=== PATIENT | female | born 1990 | race Caucasian/White ===

== ENCOUNTER 2019-07-03 00:48 | Emergency (ER) | payer OTHER ==
[~2019-07-03] VITALS: Ht 177.8 cm; Wt 120.2 kg
[2019-07-03 00:53] VITALS: BP 133/81
--- NOTE | 2019-07-03 00:53 | NUR ---
Pt ambulated to bed 9.
--- NOTE | 2019-07-03 01:13 | NUR ---
28 y/o female arrived to ed c/o left pelvic pain x 2months. rates pain 9/10 and describes it as sharp. pt states pain got worse over time. vss. abd is round,flat, active bs, and tenderness to touch on llq. on palpation the sensation feels like a movable ball. no distress noted. denies any trauma or injry or falls. no n,v. nka. pmh: gallbladder removal, appendix removal.
[2019-07-03] MEDS ORDERED: KETOROLAC 30 MG/ML VIAL IM ONE (02:00)
--- NOTE | 2019-07-03 03:12 | NUR ---
US TECH AT BEDSIDE.
[2019-07-03 04:59] VITALS: BP 122/59
== END 2019-07-03 04:59 | disposition home or self-care (01) ==
LOC: MED 00:48
DX: R10.9 Unspecified abdominal pain (principal); Z90.49 Acquired absence of other specified parts of digestive tract
CPT/HCPCS: 76856; 81002; 81025; 93976; 96372; 99284; J1885; Q0092

== ENCOUNTER 2019-07-30 20:45 | Emergency (ER) | payer OTHER ==
[~2019-07-30] VITALS: Ht 180.3 cm; Wt 117.9 kg
[2019-07-30 21:32] VITALS: BP 132/81
--- NOTE | 2019-07-30 21:35 | NUR ---
to lobby a/w bed ambulatory
--- NOTE | 2019-07-30 21:49 | NUR ---
PT AMBULATED TO CHAIR
--- NOTE | 2019-07-30 21:49 | NUR ---
28 y/o female c/o burning, redness, edema to right lower abdomen near belt-line x3 days. Area open and draining clear fluid. Also states itching. Afebrile with vss. ER MD aware. Pt in chair. Continue to monitor.
[2019-07-30 22:02] VITALS: BP 128/76
--- NOTE | 2019-07-30 22:02 | NUR ---
Patient discharged with v/s stable. States relief and reduced pain of 2/10. Written and verbal after care instructions given and explained. Patient alert, oriented and verbalized understanding of instructions. Ambulatory with steady gait. All questions addressed prior to discharge. ID band removed. Patient advised to follow up with PMD and when to return to ER. Rx of Ibuprofen and Keflex given. Patient educated on indication of medication including possible reaction and side effects. Opportunity to ask questions provided and answered.
== END 2019-07-30 22:02 | disposition home or self-care (01) ==
LOC: MED 20:45
DX: L03.311 Cellulitis of abdominal wall (principal)
CPT/HCPCS: 99283

== ENCOUNTER 2019-11-20 09:19 | Emergency (ER) | payer OTHER ==
[~2019-11-20] VITALS: Ht 177.8 cm; Wt 114.0 kg
[2019-11-20 09:33] VITALS: BP 123/85
--- NOTE | 2019-11-20 09:36 | NUR ---
Patient ambulated to bed 2. RN evaluating patient at bedside.
--- NOTE | 2019-11-20 09:49 | NUR ---
STREP THROAT SWABS COLLECTED---LAB NOTIFIED
[2019-11-20] MEDS ORDERED: IBUPROFEN 400 MG TAB PO ONE (09:50)
[2019-11-20 11:07] VITALS: BP 123/85
--- NOTE | 2019-11-20 11:08 | NUR ---
Patient discharged with v/s stable. Written and verbal after care instructions given and explained. Patient alert, oriented and verbalized understanding of instructions. Ambulatory with steady gait. All questions addressed prior to discharge. ID band removed. Patient advised to follow up with PMD. Rx of NAPROSYN/ PENICILLIN VK given. Patient educated on indication of medication including possible reaction and side effects. Opportunity to ask questions provided and answered.
== END 2019-11-20 11:08 | disposition home or self-care (01) ==
LOC: MED 09:19
DX: J03.00 Acute streptococcal tonsillitis, unspecified (principal)
CPT/HCPCS: 87081; 99283

== ENCOUNTER 2020-01-08 20:43 | Emergency (ER) | payer OTHER, SELFPAY ==
[~2020-01-08] VITALS: Ht 177.8 cm; Wt 108.9 kg
--- NOTE | 2020-01-08 21:04 | NUR ---
PT TAKEN TO OF TENT
--- NOTE | 2020-01-08 22:13 | NUR ---
COVID SWAB COLLECTED AND SENT TO LAB.
--- NOTE | 2020-01-08 22:32 | NUR ---
Patient discharged with v/s stable. Written and verbal after care instructions given and explained. Patient verbalized understanding. Ambulatory with steady gait. All questions addressed prior to discharge. Advised to follow up with PMD.
== END 2020-01-08 22:32 | disposition home or self-care (01) ==
LOC: MED 20:43
DX: R50.9 Fever, unspecified (principal); Z20.828 Contact with and (suspected) exposure to other viral communicable diseases; R68.83 Chills (without fever); M79.10 Myalgia, unspecified site; R05 Cough
CPT/HCPCS: 99283; U0003

== ENCOUNTER 2020-07-20 15:41 | Emergency (ER) | payer OTHER, SELFPAY ==
[~2020-07-20] VITALS: Ht 180.3 cm; Wt 120.2 kg
[2020-07-20 15:52] VITALS: BP 146/85
--- NOTE | 2020-07-20 16:35 | NUR ---
29 Y/O FEMALE C/O ABDOMINAL PAIN X1DAY 04/26 INTERMITTENT THROBBING WORSE WITH DEEP BREATHING. PT STATES SHE TOOK TYNENOL WITH NO RELIEF. +N/V, CHILLS. PT VOMITED X2 TODAY. DENIES PMH
--- NOTE | 2020-07-20 16:39 | NUR ---
Patient ambulated to restroom for collection of urine
[2020-07-20 16:53] LABS: BASOPHILS % (AUTO) 0.3 % (0.0-2.0); EOSINOPHILS # (AUTO) 0.2 K/uL (0-0.4); HEMATOCRIT 42.8 % (36-48); HEMOGLOBIN 14.5 g/dL (12.0-16.0); LYMPHOCYTES # (AUTO) 1.7 K/uL (2.5-16.5); LYMPHOCYTES % (AUTO) 11.2 % (20.5-51.1); MEAN CORPUSCULAR HEMOGLOBIN 31 pg (27-31); MEAN CORPUSCULAR HGB CONC 34 g/dL (33-37); MEAN CORPUSCULAR VOLUME 90.3 fL (80-94); MONOCYTES # (AUTO) 0.8 K/uL (0.8-1.0); MONOCYTES % (AUTO) 5.4 % (1.7-9.3); NEUTROPHILS # (AUTO) 12.7 K/uL (1.8-7.7); NEUTROPHILS % (AUTO) 82.1 % (42.2-75.2); PLATELET COUNT (AUTO) 341 K/uL (140-450); RED BLOOD CELL COUNT(AUTO) 4.74 MIL/uL (4.20-5.40); RED CELL DISTRIBUTION WIDTH 14.1 % (11.6-13.7); WHITE BLOOD COUNT (AUTO) 15.5 K/uL (4.8-10.8)
[2020-07-20 17:15] LABS: ALBUMIN 3.6 g/dL (3.4-5.0); ANION GAP 11.1 (8-16); CARBON DIOXIDE 28.2 mmol/L (21-32); CREATININE 0.7 mg/dL (0.6-1.3); POTASSIUM 3.3 mmol/L (3.5-5.1); TOTAL BILIRUBIN 0.5 mg/dL (0.0-1.0)
[2020-07-20] MEDS ORDERED: cefTRIAXone 1,000 MG in LIDOCAINE MPF 1% 2.1 ML IM ONE (17:20)
[2020-07-20] MEDS ORDERED: LIDOCAINE MPF 1% 5 ML ONE (17:28)
[2020-07-20] MEDS ORDERED: cefTRIAXone 1,000 MG VIAL ONE (17:28)
[2020-07-20 17:41] VITALS: BP 146/85
--- NOTE | 2020-07-20 17:41 | NUR ---
Patient discharged with v/s stable. Written and verbal after care instructions given and explained. Patient alert, oriented and verbalized understanding of instructions. Ambulatory with steady gait. All questions addressed prior to discharge. ID band removed. Patient advised to follow up with PMD. Rx of keflex 500mg cap QID PO, and naprosyn 500mg BID PO PRN given. Patient educated on indication of medication including possible reaction and side effects. Opportunity to ask questions provided and answered.
[2020-07-20 18:26] LABS: APPEARANCE,URINE HAZY (CLEAR); BILIRUBIN,URINE NEGATIVE (NEGATIVE); BLOOD, URINE 3+ (NEGATIVE); COLOR,URINE YELLOW (YELLOW); LEUKOCYTE ESTERASE ,URINE 3+ (NEGATIVE); NITRITE, URINE POSITIVE (NEGATIVE); UGLUCOSE NEGATIVE (NEGATIVE)
[2020-07-20 18:33] LABS: RBC,URINE 0-5 /HPF (0-5); WBC,URINE TOO MANY TO COUNT /HPF (0-5)
== END 2020-07-20 17:41 | disposition home or self-care (01) ==
LOC: MED 15:41
DX: N39.0 Urinary tract infection, site not specified (principal); Z90.49 Acquired absence of other specified parts of digestive tract
CPT/HCPCS: 36415; 80053; 81001; 81025; 83690; 85025; 87086; 96372; 99283; J0696; J2001